=== PATIENT | male | born 1995 | race Hispanic/Latino ===

== ENCOUNTER 2019-01-10 14:29 | Inpatient (IN) | payer OTHER, SELFPAY ==
[~2019-01-10 14:29] MED LIST: ISOVUE-370 76%-LOCM 1 ML ONE
[2019-01-10] MEDS ORDERED: Adenosine 6 MG/2 ML VIAL ONE (14:36)
[2019-01-10] MEDS ORDERED: Acetaminophen 325 MG TAB ONE (14:58)
[2019-01-10 15:23] LABS: Hemoglobin 16.4 g/dL (14.0-18.0); Mean Corpuscular HGB CONC 33.2 g/dL (32.0-36.0); Mean Corpuscular Hemoglobin 30.3 pg (27.0-31.0); Mean Corpuscular Volume 91.3 fL (78.0-98.0); Mean Platelet Volume 9.3 fL (7.4-10.4); Platelet Count 323 thou/uL (130-400); RBC Distribution Width 12.4 % (11.5-14.5); Red Blood Cell (RBC) Count 5.39 mill/uL (4.70-6.10); White Blood Cell (WBC) Count 20.7 thou/uL (4.8-10.8)
[2019-01-10 15:31] LABS: ALT (SGPT) 35 U/L (8-55); AST (SGOT) 16 U/L (5-34); Albumin 4.6 g/dL (3.5-5.0); Alkaline Phosphatase 84 U/L (40-150); Anion Gap 18 mmol/L (10-20); BUN (Urea Nitrogen) 16 mg/dL (8.9-20.6); Bilirubin, Total 2.1 mg/dL (0.2-1.2); Calc. Creatinine Clearance 0 mL/min (70-130); Calcium 10.6 mg/dL (7.8-10.44); Carbon Dioxide 21 mmol/L (22-29); Chloride 99 mmol/L (98-107); Estimated GFR-MDRD 82; Globulin 4.6 g/dL (2.4-3.5); Glucose 111 mg/dL (70-105); Potassium 3.8 mmol/L (3.5-5.1); Protein, Total 9.2 g/dL (6.0-8.3); Sodium 134 mmol/L (136-145)
[2019-01-10] MEDS ORDERED: Piperacillin/Tazobactam 4.5 GM VIAL ONE (15:36)
[2019-01-10 15:38] LABS: Band 5 % (5-11); Lymphocytes 16 % (21-51); MDiff Complete? YES; Monocytes 9 % (0-10); Neutrophil 69 % (42-75); Platelet Morphology Comment Appears Adequate; RBC Morphology Normal; Reactive Lymphocytes 1 % (0-10)
--- NOTE | 2019-01-10 15:55 | RAD ---
SINGLE VIEW CHEST: HISTORY: Dyspnea and back pain. COMPARISON: 11/25/2011 FINDINGS: A single view of the chest shows a normal sized cardiomediastinal silhouette. Low lung volumes are p resent. There is elevation of the right hemidiaphragm. There is no evidence of consolidation, mass, or pleural effusion. IMPRESSION: No evidence of acute cardiopulmonary disease. POS: [facility]
--- NOTE | 2019-01-10 16:19 | CT ---
CT ANGIO OF CHEST PERFORMED WITH INTRAVENOUS CONTRAST ENHANCEMENT WITH 3D RECONSTRUCTIONS: 01/10/19 HISTORY: Chest pain. Shortness of breath. There is mild to moderate sized right sided pleural effusion. There is atelectatic changes in the pos terior basal segment of the right lower lobe but also there is parenchymal change more in the superio r segment of the right lower lobe which could be part of the atelectasis but has more of an infiltrat isra appearance. There is linear atelectatic change in the left base without any significant effusion. No significant mediastinal, hilar or axillary adenopathy. The thoracic aorta is normal in caliber. The pulmonary artery opacification is limited. I do not see any proximal embolus but more peripheral emboli are not excluded. Marked fatty changes of the liver are visualized. Visualized portions of the pancreas which is only t he pancreatic tail is normal. IMPRESSION: 1. Mild right sided pleural effusion. There is atelectatic changes in the right base but more in the superior segment of the right lower lobe. There is changes of either atelectasis versus infiltra te. The changes in the left base are more suggestive of typical atelectasis. 2. Diffuse fatty changes of the visualized portions of the liver. 3. Limited examination. No signs of any proximal pulmonary embolus. POS: [facility]
[2019-01-10 16:38] LABS: Lipase Less than 4 U/L (8-78)
[2019-01-10 16:39] LABS: CK (CPK) 78 U/L (30-200)
--- NOTE | 2019-01-10 16:40 | ULT ---
GALLBLADDER ULTRASOUND: Date: 01/10/19 HISTORY: Right upper quadrant pain. FINDINGS: Real-time imaging of the right upper quadrant was performed. This shows a normal appearing gallbladde r. No gallstones identified. The common duct is 2-3 mm. Liver measures approximately 18.0 cm in lengt h and is of diffuse increased echogenicity. There is some focal fatty sparing adjacent to the gallbla dder. Right kidney is normal in size and not obstructed. The pancreas is totally obscured. IMPRESSION: Diffuse fatty change of the liver. POS: [facility]
[2019-01-10 17:44] LABS: Bilirubin Negative (Negative); Blood, Urine Negative (Negative); Clarity CLEAR (Clear); Glucose, Urine (Dipstick) Negative (Negative); Leukocyte Negative (Negative); Nitrite Negative (Negative); Protein, Urine (Dipstick) Trace mg/dL (Neg-Trace)
[2019-01-10 17:49] LABS: Base Excess-Venous -1.7 mmol/L (-2.0 to 3.0); CO2 Tension (PvCO2) 38.3 mmHg (40.0-50.0); Calcium, Ionized 1.06 mmol/L (See Comments:); Chloride 103 mmol/L (98-107); Hemoglobin - Calc 15.4 g/dL (14.0-18.0); O2 Tension (PvO2) 30.6 mmHg (35.0-45.0); Potassium 3.8 mmol/L (3.5-5.1); Sodium 136 mmol/L (138-145); T. Carbon Dioxide 24.2 mmol/L (22.0-28.0); pH (Venous) 7.386 (7.320-7.430); vO2 Saturation-calc 58.2 % (60.0-85.0)
[2019-01-10 17:52] LABS: Specific Gravity, Urine 1.049 (1.002-1.036)
--- NOTE | 2019-01-10 18:30 | PDOC.FPRHP ---
- History of Present Illness Chief Complaint: dyspnea, fever History of Present Illness: 23 yo M with no PMH presents for dyspnea and fever. Patient states that it began 2 weeks ago with cough and congestion. 4 days ago, he had a sharp pain in his back, so [facility] went [facility] and was given muscle relaxers which helped some. He also starting having post-tussive vomiting. He reports he did not urinate at all yesterday. His cough and dyspnea have been worsening, so much so that today he has pleuritic chest pain worse on his right side (anterior, lateral, and posterior). On presentation to ED, he was tachypneic to 40s, febrile 100.5, tachycardic to 170s, with a high WBC of 20.7. LA was elevated at 3.8. CT chest showed RLL pneumonia and pleural effusion. He was given Vanc, zosyn, tylenol, 4L NS, UA neg. CT chest ruled out PE. - Allergies/Adverse Reactions Allergies Allergy/AdvReac Type Severity Reaction Status Date / Time No Known Drug Allergies Allergy Verified 01/10/19 21:49 - Home Medications Medication Instructions Recorded Confirmed Type Acetaminophen With Codeine 1 tablet PO Q6HR PRN 01/10/19 01/10/19 History [Tylenol with Codeine #3] Cyclobenzaprine [Flexeril] 10 mg PO TID PRN 01/10/19 01/10/19 History - History PMHx: None PSHx: None FHx: No heart disease, DM or cancer Social: Denies tobacco, alcohol, or drug use - Review of Systems General: reports: fever/chills, weight/appetite/sleep changes (decreased appetite) ENT: reports: other (sore throat). denies: nasal congestion, rhinorrhea Respiratory: reports: cough, congestion, shortness of breath Cardiovascular: reports: chest pain. denies: palpitation, edema Gastrointestinal: reports: vomiting. denies: nausea, diarrhea, constipation, abdominal pain, GI bleeding Genitourinary: denies: dysuria, other (hematuria) Skin: denies: rashes, lesions Musculoskeletal: reports: pain (back pain). denies: tenderness Neurological: reports: numbness (chest numbness on right side). denies: weakness Psychological: denies: anxiety, depression - Vital signs BP: [128/76] HR: [135] RR: [48] Tmax: [100.5] Pox: [96]% on [RA] Wt: [107.1] - Physical Exam Constitutional: awake, alert and oriented, well developed, other (tachypneic, diaphoretic) HEENT: normocephalic and atraumatic, PERRLA, EOMI Neck: supple, trachea midline Heart: normal S1/S2, no murmurs/rubs/gallops, pulses present, no edema, other ( tachycardic) Lungs: CTAB, no rales/rhonchi, no wheezing Abdomen: soft, non-tender, bowel sounds present, no masses/distention Musculoskeletal: normal structure, normal tone, ROM grossly normal Neurological: no focal deficit, CN II-XII intact Skin: good turgor (s/p 3L fluids), capillary refill <2 seconds Heme/Lymphatic: no unusual bruising or bleeding, no purpura Psychiatric: normal mood and affect, good judgment and insight, intact recent and remote memory FMR H&P: Results - Labs Result Diagrams: 01/10/19 14:40 01/10/19 14:40 Lab results: WBC 20.7 thou/uL (4.8-10.8) H 01/10/19 14:40 Hgb 16.4 g/dL (14.0-18.0) 01/10/19 14:40 Hct 49.2 % (42.0-52.0) 01/10/19 14:40 MCV 91.3 fL (78.0-98.0) 01/10/19 14:40 Plt Count 323 thou/uL (130-400) 01/10/19 14:40 Band Neuts % (Manual) 5 % (5-11) 01/10/19 14:40 VBG pCO2 38.3 mmHg (40.0-50.0) L 01/10/19 17:47 VBG pO2 30.6 mmHg (35.0-45.0) L 01/10/19 17:47 Sodium 134 mmol/L (136-145) L 01/10/19 14:40 Potassium 3.8 mmol/L (3.5-5.1) 01/10/19 14:40 Chloride 99 mmol/L (98-107) 01/10/19 14:40 Carbon Dioxide 21 mmol/L (22-29) L 01/10/19 14:40 BUN 16 mg/dL (8.9-20.6) 01/10/19 14:40 Creatinine 1.13 mg/dL (0.7-1.3) 01/10/19 14:40 Glucose 111 mg/dL (70-105) H 01/10/19 14:40 Lactic Acid 3.8 mmol/L (0.5-2.2) H 01/10/19 14:40 Calcium 10.6 mg/dL (7.8-10.44) H 01/10/19 14:40 Total Bilirubin 2.1 mg/dL (0.2-1.2) H 01/10/19 14:40 AST 16 U/L (5-34) 01/10/19 14:40 ALT 35 U/L (8-55) 01/10/19 14:40 Alkaline Phosphatase 84 U/L (40-150) 01/10/19 14:40 Creatine Kinase 78 U/L (30-200) 01/10/19 14:38 Serum Total Protein 9.2 g/dL (6.0-8.3) H 01/10/19 14:40 Albumin 4.6 g/dL (3.5-5.0) 01/10/19 14:40 Lipase Less than 4 U/L (8-78) L 01/10/19 14:38 Urine Ketones 15 mg/dL (Negative) H 01/10/19 17:17 Urine Blood Negative (Negative) 01/10/19 17:17 Urine Nitrite Negative (Negative) 01/10/19 17:17 Ur Leukocyte Esterase Negative (Negative) 01/10/19 17:17 - EKG Interpretation EKG: Sinus tach - Radiology Interpretation Chest x-ray Status: image reviewed by me, report reviewed by me Additional comment: RLL pneumonia, elevated diaphram CT scan - chest Status: image reviewed by me, report reviewed by me Additional comment: RLL pneumonia, no PE, Rt pleural effusion FMR H&P: A/P - Problem List (1) Sepsis due to pneumonia Current Visit: Yes Status: Acute Priority: High Code(s): J18.9 - PNEUMONIA , UNSPECIFIED ORGANISM; A41.9 - SEPSIS, UNSPECIFIED ORGANISM (2) Acute hypoxemic respiratory failure Current Visit: Yes Status: Acute Code(s): J96.01 - ACUTE RESPIRATORY FAILURE WITH HYPOXIA (3) Costochondral chest pain Current Visit: Yes Status: Acute Code(s): R07.1 - CHEST PAIN ON BREATHING (4) Fatty liver Current Visit: Yes Status: Acute Code(s): K76.0 - FATTY (CHANGE OF) LIVER, NOT ELSEWHERE CLASSIFIED (5) Dehydration Current Visit: Yes Status: Acute Priority: High Code(s): E86.0 - DEHYDRATION - Plan #1 Acute Hypoxemic Respiratory Failure 2/2 Sepsis due to RLL Pneumonia - On presentation to ED, he was tachypneic to 40s, febrile 100.5, tachycardic to 170s, with a high WBC of 20.7. LA was elevated at 3.8. VBG showed low O2. - CXR/CT chest showed RLL pneumonia and pleural effusion. CT chest showed no PE. - Continue Vanc, zosyn - Consider switching antibiotics to azithro/rocephin or doxycycline once VSS and tolerating PO - S/p 4L NS. Continue MIVF LR @ 150 - UA neg - LA trending down - Procal 1.05, continue to trend - Strep ag neg - Bl and urine cx collected - Continue to monitor vitals closely - AM BMP/CBC - duonebs q4h OMAR, PRN q2h - HIV neg, UDS pending #2 Costochondritis due to #1 - 1 dose toradol, then IBP 800 q6h #Moderate dehydration - Contributing to his tachycardia - Zofran for nausea - S/p 4L as above, on MIVF. Tachycardia improving - Decreased output. Continue to monitor. BUN/Cr wnl #4 Fatty Liver - Seen on sono, group therapy counselor dietary change - Liver enzymes wnl Diet: Regular DVT ppx: lovenox GI ppx: ranitidine Code status: full PCP: none Xiomara Harvey MD PGY-1 FMR H&P: Upper Level - Pertinent history 23 yo HM no PMH presents with 2 week hx of cough and 2-3 day history of lower posterior chest wall pain. States he had 1 episode of vomiting on Tuesday and has not felt hungry or thirsty since then. UTD vaccines. Was seen in urgent care yesterday and diagnosed with low back pain and given NSAIDs and muscle relaxers for pain. ER: Labs, EKG, CXR, CTA chest, NS x4L, Vanc, Zosyn. We ordered a duoneb in the ER and patient states he felt like he could breath easier after Neb. Still having pain so ordered dose of toradol 30 mg IV. - Pertinent findings Vitals Pulse 143, Resp 40, SpO2 94% on RA. Gen: Mild resp distress. A&Ox4. Speaks short sentences due to pain. CV: Tachy regular, no murmur Pulm: CTA-B. No retractions. tachypneic Labs: Lactic Acid 3.8-> 2.8. Urine specific gravity 1.049, WBC 20.7 RUQ US: Fatty liver changes. CTA-Chest: mild to moderate right pleural effusions, RLL infiltrate - Plan Date/Time: 01/10/191829 I, Stiven Noel MD, have evaluated this patient and agree with findings/plan as outlined by internet sales manager resident. Pertinent changes/additions are listed here. 1. Acute Hypoxemic Respiratory distress 2/2 RLL CAP: Checking procalcitonin and urine strep antigen. Per hothouse worker, patient is not stable for medical floor so will be placed on telemetry. Patient has no cardiac history and is likely tachycardic and tachypneic due to volume depletion and MSK chest pain. Will schedule duonebs q4hr with q2hr PRN albuterol Continue Vanc and zosyn. Once clinically improved, will consider switching to azithro/rocephin or doxycycline. 2. Sepsis 2/2 #1: Lactic acid trending down. LR at 150 mL/hr. 3. MSK chest pain: PRN ibuprofen. Given toradol in ER. likely contributing to tachypnea. 4. Diet: regular 5. PPx: walking program 6. CODE: FULL Dispo: tele, inpatient >[address] Sevilla.
[2019-01-10 19:11] LABS: Lactic Acid 2.8 mmol/L (0.5-2.2)
[2019-01-10] MEDS ORDERED: Ketorolac Tromethamine 30 MG/ML VIAL ONE (19:19)
[2019-01-10 19:58] LABS: Strep pneumo Urine Ag NEGATIVE (NEGATIVE)
[2019-01-10 20:40] LABS: HIV (1/2) Antibody/Antigen Non-Reactive (NonReactive); HIV 1/2 INDEX 0.42 S/CO (<1.00)
[2019-01-10] MEDS ORDERED: Ketorolac Tromethamine 30 MG/ML VIAL IVP PRN (21:43)
[2019-01-10] MEDS ORDERED: Enoxaparin Sodium 40 MG/0.4 ML SYRINGE SC SCH (22:00)
[2019-01-10] MEDS: Lactated Ringer's 1,000 ML IV SCH ×2 (22:05→23:24)
[2019-01-10 22:19] VITALS: BMI 34.7
[2019-01-10] MEDS ORDERED: Lactated Ringer's 1,000 ML IV SCH (23:00)
--- NOTE | 2019-01-10 23:14 | PDOC.EVN ---
Event Note - Event Note Event Note: Date/Time: 01/10/19 9268 I personally evaluated the patient and discussed the management with Dr. Verde I agree with the History, Examination, Assessment and Plan documented above with any addition or exceptions noted below- 23 yo M with no PMH presents with 2 week hx of cough productive of white sputum and 2-3 day history of lower posterior chest wall pain. States he had 1 episode of vomiting on Tuesday and has not felt hungry or thirsty since then. UTD vaccines. Was seen in urgent care yesterday and diagnosed with low back pain and given NSAIDs and muscle relaxers for pain with no relief. No ill contacts. Subj fevers. PMH/PSH/All/ Meds reviewed and agree with resident's documentation. Tm 101.4 in ER p148 BP113/58 RR24 90% RA Exam repeated by me and agree with resident's findings. Labs: WBC=20.7, H/H=16.4/49.2, Ekz=937, NH=502, K=3.8, CL=99, CO2=21, BUN/Cr=16/ 1.13, Wbhg=632, Lactic acid=3.8 -> 2.8, AST/ALT=16/35, Procal=1.05, Urine Strep pneumo Ag (-); CTA chest- mild right pleural effusion, RLL infiltrate. A/P: 1) Sepsis secondary to CAP- Continue IVF. Continue Vanc/cefepime. Blood, urine cultures pending. Continue nebs.
[2019-01-10] MEDS: Ibuprofen 800 MG TAB PO SCH (23:23)
[2019-01-10] MEDS: Piperacillin/Tazobactam 4.5 GM in Sodium Chloride 0.9% 100 ML IVPB SCH (23:23)
[2019-01-11] MEDS: Vancomycin HCl 1.5 GM in Sodium Chloride 0.9% 250 ML 300 ML IVPB SCH ×2 (01:17→12:29)
[2019-01-11] MEDS ORDERED: Ondansetron PF 4 MG/2 ML Vial IVP PRN (01:18)
[2019-01-11] MEDS ORDERED: Ondansetron ODT 4 MG TAB PO PRN (01:18)
[2019-01-11 02:02] LABS: Amphetamine Not Detected (NotDetected); Barbiturates Screen Not Detected (NotDetected); Benzodiazepine Screen Not Detected (NotDetected); Cocaine Metabolite Screen Not Detected (NotDetected); Medtox Control Line Valid? VALID (VALID); Medtox Reader # READER 4; Methadone Not Detected (NotDetected); Methamphetamine Not Detected (NotDetected); Opiate Screen Detected (NotDetected); Oxycodone Screen Not Detected (NotDetected); Phencyclidine (PCP) Not Detected (NotDetected); THC/Cannabinoid Screen Not Detected (NotDetected); Tricyclic Screen Detected (NotDetected)
[2019-01-11 05:15] LABS: Anion Gap 14 mmol/L (10-20); BUN (Urea Nitrogen) 14 mg/dL (8.9-20.6); Calc. Creatinine Clearance 182 mL/min (70-130); Calcium 9.3 mg/dL (7.8-10.44); Carbon Dioxide 22 mmol/L (22-29); Chloride 102 mmol/L (98-107); Estimated GFR-MDRD Greater than 90; Glucose 111 mg/dL (70-105); Potassium 3.9 mmol/L (3.5-5.1); Sodium 134 mmol/L (136-145)
[2019-01-11 05:16] LABS: Band 3 % (5-11); Hemoglobin 13.9 g/dL (14.0-18.0); Lymphocytes 5 % (21-51); MDiff Complete? YES; Mean Corpuscular HGB CONC 33.1 g/dL (32.0-36.0); Mean Corpuscular Hemoglobin 30.6 pg (27.0-31.0); Mean Corpuscular Volume 92.5 fL (78.0-98.0); Mean Platelet Volume 8.1 fL (7.4-10.4); Monocytes 3 % (0-10); Neutrophil 89 % (42-75); Platelet Count 230 thou/uL (130-400); Platelet Morphology Comment Appears Adequate; RBC Distribution Width 12.1 % (11.5-14.5); RBC Morphology Normal; Red Blood Cell (RBC) Count 4.54 mill/uL (4.70-6.10); White Blood Cell (WBC) Count 21.7 thou/uL (4.8-10.8)
[2019-01-11] MEDS: Ibuprofen 800 MG TAB PO SCH ×4 (05:28→23:39)
[2019-01-11] MEDS: Piperacillin/Tazobactam 4.5 GM in Sodium Chloride 0.9% 100 ML IVPB SCH ×4 (05:28→23:39)
--- NOTE | 2019-01-11 08:18 | PDOC.FM ---
- Subjective Subjective: Patient seen at bedside this morning resting comfortably. he states that he is feeling much better this morning. No acute events since admission. No new complaints - Objective MAR Reviewed: Yes Vital Signs & Weight: Vital Signs (12 hours) Temp Pulse Resp BP Pulse Ox 01/11/19 07:24 94 L 01/11/19 07:23 127 H 20 94 L 01/11/19 04:00 99.7 F H 136 H 18 113/58 L 95 01/11/19 02:21 84 20 95 01/11/19 00:00 99.5 F 144 H 20 109/52 L 95 01/10/19 23:12 87 20 97 01/10/19 21:43 99.5 F 148 H 22 H 113/58 L 90 L Weight Weight 106.594 kg I&O: 01/10/19 01/11/19 01/12/19 06:59 06:59 06:59 Intake Total 2600 Output Total 300 Balance 2300 Result Diagrams: 01/11/19 04:30 01/11/19 04:30 Phys Exam - Physical Examination Constitutional: NAD HEENT: moist MMs Neck: full ROM Rales in RML and RLL Cardiovascular: no significant murmur Tachycardia Gastrointestinal: soft, non-tender, no distention, positive bowel sounds Musculoskeletal: no edema Neurological: moves all 4 limbs Psychiatric: A&O x 3 Skin: no rash, normal turgor Dx/Plan (1) Acute hypoxemic respiratory failure Code(s): J96.01 - ACUTE RESPIRATORY FAILURE WITH HYPOXIA Status: Acute (2) Costochondral chest pain Code(s): R07.1 - CHEST PAIN ON BREATHING Status: Acute (3) Dehydration Code(s): E86.0 - DEHYDRATION Status: Acute (4) Fatty liver Code(s): K76.0 - FATTY (CHANGE OF) LIVER, NOT ELSEWHERE CLASSIFIED Status: Chronic (5) Sepsis due to pneumonia Code(s): J18.9 - PNEUMONIA, UNSPECIFIED ORGANISM; A41.9 - SEPSIS, UNSPECIFIED ORGANISM Status: Acute - Plan Plan: 1. Acute Hypoxemic Respiratory Failure 2/2 Sepsis due to RLL Pneumonia - Patient appears to be stable at this time. Normal O2 sat and respiratory rate , though tachycardia persists. - CXR/CT chest showed RLL pneumonia and pleural effusion. CT chest showed no PE. - Plan to de escalate abx today. - Patient has adequate fluid resuscitation and taking PO well, consider dc'ing IVF when urinary output improves - Continue to trend lactic acid and procal - Strep ag neg - Bl and urine cx collected - duonebs q4h OMAR, PRN q2h 2. Costochondritis - prn oral NSAIDs 3. Moderate dehydration - improving, continue to monitor UOP 4. Fatty Liver - incidental finding, legal counsel out weight loss. Will need outpatient work up Dispo: patient stable and doing well. Likely stable to move off of tele today. LOS 24-48 hours. Addendum - Attending - Attending Attestation Date/Time: 01/11/19 1106 I personally evaluated the patient and discussed the management with Dr. Lee. I agree with the History, Examination, Assessment and Plan documented above with any addition or exceptions noted below. Patient symptomatically feels better and almost near baseline. RLL Pneumonia on CT Scan- Continue Vanc and Zosyn through 1300 dose and then deescalate abx. 1/2 + blood cx for coag neg staph- most likely skin contaminant. Dehydration- improved after 4L bolus. On maintanence fluid now. good uop by history Fatty liver- dietary counseling. Tachycardia- sinus tach- no EKG changes and patient asymptomatic. Most likely exacerbated by albuterol. Continue to monitor on tele.
[2019-01-11] MEDS ORDERED: Vancomycin HCl 1.5 GM in Sodium Chloride 0.9% 500 ML IVPB SCH (09:00)
[2019-01-11] MEDS: Enoxaparin Sodium 40 MG/0.4 ML SYRINGE SC SCH (09:05)
[2019-01-11 09:52] LABS: Lactic Acid 1.4 mmol/L (0.5-2.2)
[2019-01-11] MEDS: Lactated Ringer's 1,000 ML IV SCH ×4 (12:42→23:39)
[2019-01-11] MEDS: Acetaminophen/Codeine 30-300mg Tablet PO PRN (23:37)
[2019-01-12] MEDS: Ibuprofen 800 MG TAB PO SCH ×4 (06:04→23:47)
[2019-01-12 06:23] LABS: #Basophils 0.1 thou/uL (0.0-0.2); #Eosinphils 0.2 thou/uL (0.0-0.7); #Lymphocytes 0.9 thou/uL (1.20-3.40); #Monocytes 1.2 thou/uL (0.11-0.59); #Neutrophils 11.2 thou/uL (1.40-6.50); %Basophils 0.6 % (0.0-1.0); %Eosinophils 1.8 % (0.0-10.0); %Lymphocytes 6.5 % (21.0-51.0); %Monocytes 8.6 % (0.0-10.0); %Neutrophils 82.5 % (42.0-75.0); Mean Corpuscular HGB CONC 33.4 g/dL (32.0-36.0); Mean Corpuscular Hemoglobin 30.2 pg (27.0-31.0); Mean Corpuscular Volume 90.3 fL (78.0-98.0); Mean Platelet Volume 7.9 fL (7.4-10.4); Platelet Count 225 thou/uL (130-400); RBC Distribution Width 12.3 % (11.5-14.5); White Blood Cell (WBC) Count 13.5 thou/uL (4.8-10.8)
[2019-01-12 06:44] LABS: Chloride 105 mmol/L (98-107); Potassium 5.4 mmol/L (3.5-5.1); Sodium 133 mmol/L (136-145)
[2019-01-12 06:45] LABS: Calcium 9.1 mg/dL (7.8-10.44); Glucose 90 mg/dL (70-105)
[2019-01-12 06:47] LABS: Carbon Dioxide 15 mmol/L (22-29)
[2019-01-12 06:49] LABS: BUN (Urea Nitrogen) 13 mg/dL (8.9-20.6); Calc. Creatinine Clearance 182 mL/min (70-130); Estimated GFR-MDRD Greater than 90
[2019-01-12 06:53] LABS: Lactic Acid 1.6 mmol/L (0.5-2.2)
[2019-01-12 07:15] LABS: Anion Gap 18 mmol/L (10-20)
--- NOTE | 2019-01-12 08:00 | RAD ---
TWO VIEWS OF THE CHEST: COMPARISON: 01/10/2019. HISTORY: Right lower lobe pneumonia. FINDINGS: Two views of the chest show a normal-size cardiomediastinal silhouette. There is elevation of the ri ght hemidiaphragm. A moderate right pleural effusion is seen. Adjacent atelectasis versus infiltrat e may be present. IMPRESSION: Moderate right pleural effusion with adjacent atelectasis versus infiltrate. POS: [facility]
--- NOTE | 2019-01-12 08:07 | PDOC.FM ---
- Subjective Subjective: Seen sitting up in chair this morning in no acute distress. States that he generally feels better, but still has SOB when he walks. Denies fever, chills, chest pain, or new symptoms. No acute events over night - Objective MAR Reviewed: Yes Vital Signs & Weight: Vital Signs (12 hours) Temp Pulse Resp BP Pulse Ox 01/12/19 04:00 97.6 F 90 18 110/57 L 92 L 01/12/19 03:13 94 L 01/11/19 23:07 94 L Weight Weight 106.594 kg I&O: 01/11/19 01/12/19 01/13/19 06:59 06:59 06:59 Intake Total 2600 2400 Output Total 300 Balance 2300 2400 Result Diagrams: 01/12/19 06:13 01/12/19 05:27 Additional Labs: Laboratory Tests 01/12/19 06:13 Procalcitonin 2.59 EKG Reviewed by me: Yes Phys Exam - Physical Examination Constitutional: NAD HEENT: sclera anicteric Neck: full ROM Rales in RML and RLL, Left side clear Cardiovascular: no significant murmur Tachycardia Gastrointestinal: soft, non-tender, no distention, positive bowel sounds Musculoskeletal: no edema Neurological: non-focal, moves all 4 limbs Psychiatric: normal affect, A&O x 3 Skin: no rash, normal turgor Dx/Plan (1) Acute hypoxemic respiratory failure Code(s): J96.01 - ACUTE RESPIRATORY FAILURE WITH HYPOXIA Status: Acute (2) Costochondral chest pain Code(s): R07.1 - CHEST PAIN ON BREATHING Status: Acute (3) Dehydration Code(s): E86.0 - DEHYDRATION Status: Resolved (4) Fatty liver Code(s): K76.0 - FATTY (CHANGE OF) LIVER, NOT ELSEWHERE CLASSIFIED Status: Chronic (5) Sepsis due to pneumonia Code(s): J18.9 - PNEUMONIA, UNSPECIFIED ORGANISM; A41.9 - SEPSIS, UNSPECIFIED ORGANISM Status: Acute (6) Parapneumonic effusion Code(s): J18.9 - PNEUMONIA, UNSPECIFIED ORGANISM; J91.8 - PLEURAL EFFUSION IN OTHER CONDITIONS CLASSIFIED ELSEWHERE Status: Suspected - Plan Plan: 1. Acute Hypoxemic Respiratory Failure 2/2 Sepsis due to RLL Pneumonia - Continues to be stable and oxygenating well on RA. Tachycardia, however, persists - CXR/CT chest shows worsening area of infiltrate and effusion. This is likely due to low volume status at time of admission. Will consult pulm for evaluation for thoracentesis - Move abx to Rocephin and Doxy - Lactic acid WNL - Procal increased to 2.5 today, will continue to trend - Strep ag neg - Blood culture shows 1/2 coagulase neg staph, assumed contaminate. Urine cx pending - duonebs q4h OMAR, PRN q2h 2. Costochondritis - prn oral NSAIDs 3. Moderate dehydration, resolved 4. Fatty Liver - incidental finding, correctional substance abuse counselor out weight loss. Will need outpatient work up 5. Parapneumonic effusion, suspected - pulm consult as above Dispo: patient stable and doing well. Likely stable to move off of tele today. LOS 24-48 hours. Addendum - Attending - Attending Attestation Date/Time: 01/12/19 1126 I personally evaluated the patient and discussed the management with Dr. Lee I agree with the History, Examination, Assessment and Plan documented above with any addition or exceptions noted below. CAP with worsening parapneumoic effusion. Patient not requiring O2 at this time. Will consult pulmonology. Tachycardia- persistent despite rehydration. will get ECHO to further evaluate. Probable GENIE (per patient and girlfriends report) Obesity and Fatty liver- weight loss counseling.
[2019-01-12] MEDS ORDERED: cefTRIAXone\\ROCEPHIN 1 GM in Sodium Chloride 0.9% 100 ML IVPB SCH (09:00)
[2019-01-12] MEDS: Enoxaparin Sodium 40 MG/0.4 ML SYRINGE SC SCH (10:52)
[2019-01-12] MEDS: Doxycycline 100 MG CAP PO SCH ×2 (13:24→19:49)
[2019-01-12] MEDS: Acetaminophen/Codeine 30-300mg Tablet PO PRN (19:48)
--- NOTE | 2019-01-12 20:25 | CON ---
DATE OF CONSULTATION: 01/12/2019 SERVICE: Pulmonary Medicine. REASON FOR CONSULTATION: Pneumonia. HISTORY OF PRESENT ILLNESS: The patient is a 23-year-old male with past medical history significant for some pleuritic chest discomfort. Ultimately, he presented to the emergency department was discovered to have a pneumonia. He was admitted to the hospital on the 10 of January. Repeat chest x-ray was performed demonstrating increasing opacification in the right lung, and likely an increasing pleural effusion. I was subsequently consulted. Since he has been in the hospital, he has had a significant improvement in symptoms. He denies any current chest pain, fevers, chills, nausea, or vomiting. Otherwise, he is returning to his usual state of health. PAST MEDICAL HISTORY: 1. Obesity. 2. Obstructive sleep apnea, suspected. PAST SURGICAL HISTORY: None. FAMILY HISTORY: Noncontributory. SOCIAL HISTORY: Negative for alcohol, tobacco, or illicit drug use. He works in the oil field. He denies any exposure to chemicals, dust, asbestos, or tuberculosis. ALLERGIES: NO KNOWN DRUG ALLERGIES. MEDICATIONS: List of his inpatient medications was reviewed. No specific updates were made at this time. Up until recently, he was on vancomycin, and Zosyn. He was just recently de-escalated to Rocephin and doxycycline. REVIEW OF SYSTEMS: General, head, ears, eyes, nose, throat, cardiovascular, respiratory, GI, , musculoskeletal, neurologic, and skin are negative except as mentioned in the HPI. PHYSICAL EXAMINATION: VITAL SIGNS: Afebrile, pulse 118, blood pressure 120/69, respirations 16, and saturation 90% on room air. GENERAL: The patient is awake and alert, in no apparent distress. LUNGS: Decent air entry. Rhonchi and crackles are present in the right lung. No prolonged expiratory phase or wheezing is otherwise appreciated. HEART: Normal rate and regular. ABDOMEN: Soft, nontender, and nondistended. Bowel sounds are positive. MUSCULOSKELETAL: No cyanosis or clubbing. No pitting in the bilateral lower extremities. NEUROLOGIC: Grossly nonfocal. LABORATORY DATA: WBC 13.5, hemoglobin 13.0, platelets 225,000. Sodium 133 and roughly stable. Potassium 5.4. Basic metabolic profile is otherwise unremarkable. Lactate was originally 2.8, but is trended downward to 1.6. Procalcitonin is elevated at 2.5. Liver function studies are unremarkable. Urinalysis is positive for tricyclics and opiates, in keeping with what he was given in the outpatient setting. HIV was nonreactive. Strep pneumoniae antigen is unremarkable. Coag-negative staph is growing in 1/2 blood cultures. Influenza A and B are unremarkable. Urine culture to date is negative. IMAGING STUDIES: CTA of the chest was without PE. He has a right lower lobe infiltrate, and at that time, had a remote pleural effusion. Unfortunately, on presentation, it had ever so slight appearance of loculation given that it did not layer fully. Abdominal ultrasound demonstrates diffuse fatty change of the liver. Repeat chest x-ray demonstrates significant increase in the infiltrate, in the size of the effusion. His bedside ultrasound performed by me showed no significant effusion or infiltrate in the left chest. On the right side, had a very difficult time distinguishing my fluid/tissue planes. I could not identify the lung. I could clearly see there was a rim of pleural effusion. Deep to that, there was a structure that was not mobile. That did not take on the appearance of atelectatic or consolidated lung. I could not identify his diaphragm. ASSESSMENT: 1. Acute hypoxic respiratory failure, improving. 2. Community-acquired pneumonia. 3. Pleural effusion. 4. Obstructive sleep apnea, suspected. 5. Severe sepsis, improving. DISCUSSION AND PLAN: We will repeat a CT of the chest tomorrow morning. If it appears that this fluid collection is getting larger, or taking on a loculated appearance, thoracentesis, and/or cardiothoracic surgery consultation will be considered depending on what we find. On my bedside evaluation, I really could not see a large obvious pocket of fluid to get into. That being said, my suspicion is that this base is actually involved. Hopefully, we would not see a larger pleural effusion on our CT tomorrow. The patient understands however that if this space is involved, it will require additional procedures and possibly an operation to fix it. If there is more loculated appearance, I would restart anaerobic coverage. 70 minutes have been devoted to this patient in various activities. I personally reviewed all imaging studies and laboratory data noted within this document. For fifty percent of this time, I was interacting with the patient at the bedside or coordinating care with the care team. For the remainder of the time I was immediately available to the patient in the hospital unit. Job ID: [id number] [facility]
[2019-01-13] MEDS: Ibuprofen 800 MG TAB PO SCH ×4 (06:18→23:16)
[2019-01-13 06:26] LABS: Anion Gap 13 mmol/L (10-20); BUN (Urea Nitrogen) 14 mg/dL (8.9-20.6); Calc. Creatinine Clearance 220 mL/min (70-130); Calcium 9.2 mg/dL (7.8-10.44); Carbon Dioxide 22 mmol/L (22-29); Chloride 105 mmol/L (98-107); Estimated GFR-MDRD Greater than 90; Glucose 102 mg/dL (70-105); Potassium 3.2 mmol/L (3.5-5.1); Sodium 137 mmol/L (136-145)
[2019-01-13] MEDS ORDERED: Piperacillin/Tazobactam 4.5 GM in Sodium Chloride 0.9% 100 ML IVPB SCH ×2 (06:30→12:00)
[2019-01-13 06:34] LABS: #Eosinphils 0.3 thou/uL (0.0-0.7); #Monocytes 1.1 thou/uL (0.11-0.59); #Neutrophils 8.4 thou/uL (1.40-6.50); %Basophils 0.4 % (0.0-1.0); %Eosinophils 2.9 % (0.0-10.0); %Lymphocytes 8.9 % (21.0-51.0); %Monocytes 10.5 % (0.0-10.0); %Neutrophils 77.3 % (42.0-75.0); Hemoglobin 12.4 g/dL (14.0-18.0); Mean Corpuscular HGB CONC 33.6 g/dL (32.0-36.0); Mean Corpuscular Hemoglobin 31.1 pg (27.0-31.0); Mean Corpuscular Volume 92.6 fL (78.0-98.0); Platelet Count 261 thou/uL (130-400); RBC Distribution Width 12.4 % (11.5-14.5); Red Blood Cell (RBC) Count 3.98 mill/uL (4.70-6.10); White Blood Cell (WBC) Count 10.8 thou/uL (4.8-10.8)
--- NOTE | 2019-01-13 06:40 | PDOC.FM ---
- Subjective Subjective: Seen at bedside this morning. Patient sitting up in no acute distress. Notes that symptoms of SOB and cough are improving. No acute events over night - Objective MAR Reviewed: Yes Vital Signs & Weight: Vital Signs (12 hours) Temp Pulse Resp BP BP Pulse Ox 01/13/19 04:58 91 L 01/13/19 04:35 97.8 F 107 H 20 127/59 L 97 01/12/19 20:00 99.8 F H 123 H 18 134/76 93 L Weight Weight 106.594 kg I&O: 01/11/19 01/12/19 01/13/19 06:59 06:59 06:59 Intake Total 2600 2400 Output Total 300 Balance 2300 2400 Result Diagrams: 01/13/19 05:26 01/13/19 05:26 Phys Exam - Physical Examination Constitutional: NAD HEENT: moist MMs Neck: full ROM Rales in RLL and RML, no change Cardiovascular: RRR, no significant murmur Gastrointestinal: soft, non-tender, no distention Musculoskeletal: no edema Neurological: moves all 4 limbs Psychiatric: normal affect, A&O x 3 Skin: no rash Dx/Plan (1) Acute hypoxemic respiratory failure Code(s): J96.01 - ACUTE RESPIRATORY FAILURE WITH HYPOXIA Status: Acute (2) Costochondral chest pain Code(s): R07.1 - CHEST PAIN ON BREATHING Status: Acute (3) Dehydration Code(s): E86.0 - DEHYDRATION Status: Resolved (4) Fatty liver Code(s): K76.0 - FATTY (CHANGE OF) LIVER, NOT ELSEWHERE CLASSIFIED Status: Chronic (5) Sepsis due to pneumonia Code(s): J18.9 - PNEUMONIA, UNSPECIFIED ORGANISM; A41.9 - SEPSIS, UNSPECIFIED ORGANISM Status: Acute (6) Parapneumonic effusion Code(s): J18.9 - PNEUMONIA, UNSPECIFIED ORGANISM; J91.8 - PLEURAL EFFUSION IN OTHER CONDITIONS CLASSIFIED ELSEWHERE Status: Suspected (7) Hypokalemia Code(s): E87.6 - HYPOKALEMIA Status: Acute - Plan Plan: 1. Acute Hypoxemic Respiratory Failure 2/2 Sepsis due to RLL Pneumonia - Continues to be stable and oxygenating well on RA. Tachycardia is improving, however still over 100. - Patient was seen by Dr Cruz yesterday, there is some concern for loculated effusion. Patient will have CT today to evaluate. - Add back anaerobic coverage today - Strep ag neg - Blood culture shows 1/2 coagulase neg staph, assumed contaminate. Urine cx negative - duonebs PRN q2h 2. Costochondritis - prn oral NSAIDs 3. Moderate dehydration, resolved 4. Fatty Liver - incidental finding, family life counselor out weight loss. Will need outpatient work up 5. Parapneumonic effusion, suspected - CT today 6. Hypokalemia - replace PO Dispo: patient stable, further hospital course will be dictated by results of CT today. Addendum - Attending - Attending Attestation Date/Time: 01/13/19 9273 I personally evaluated the patient and discussed the management with Dr. Lee. I agree with the History, Examination, Assessment and Plan documented above with any addition or exceptions noted below. The patient was seen this morning sitting up in a chair and stated he felt a little better. CT scan ordered and now shows a loculated effusion. Consulting CV surgery for possible decortication. Will continue antibiotics.
[2019-01-13] MEDS ORDERED: Potassium Chloride 20 MEQ TAB PO SCH ×2 (06:45→17:30)
[2019-01-13] MEDS: Enoxaparin Sodium 40 MG/0.4 ML SYRINGE SC SCH (08:20)
[2019-01-13] MEDS: Doxycycline 100 MG CAP PO SCH (08:20)
--- NOTE | 2019-01-13 11:42 | CT ---
CT CHEST NONCONTRAST: Date: 01/13/19 HISTORY: Empyema. Pleural effusion. COMPARISON: 01/10/19. FINDINGS: Significant atelectasis of the right lung Mild atelectasis and scarring at the left base. No evidence of pneumothorax. Lack of contrast limits evaluation of the soft tissues. Right pleural fluid has increased somewhat, n ow with fluid extending around the upper and anterior margin of the right lung. A loculated component of fluid also lies along the right side of the upper anterior mediastinum. There is some increased d ensity peripheral to the lobular fluid, suggestive of a developing rind. Within the partially visualized upper abdomen, liver is diffusely hypodense. IMPRESSION: 1. Interval increase in right pleural fluid, now somewhat loculated around the right lung and at the right upper mediastinum. No pleural gas is evident. 2. Hepatosteatosis. POS: [facility]
[2019-01-13] MEDS: Piperacillin/Tazobactam 4.5 GM in Sodium Chloride 0.9% 100 ML IVPB SCH ×3 (12:31→23:16)
--- NOTE | 2019-01-13 13:37 | CON ---
DATE OF CONSULTATION: 01/13/2019 REASON FOR CONSULTATION: Evaluate the patient with a right multiloculated effusion. HISTORY OF PRESENT ILLNESS: Mr. Aguirre is a 23-year-old male, who presented through the emergency department with pneumonia. Since admission, he has accumulated right-sided effusion, which on CT scan today appears multiloculated. He also has a fair amount of consolidation of his right lung. He has had no fever. He has had shortness of breath and cannot really complete sentences without stopping. His white blood cell count at the time of admission was 21,000, it is currently 10,000 on Vibramycin. He has grown coag-negative staph from blood cultures. Currently, he is resting comfortably without real complaint. PAST MEDICAL HISTORY: None. PAST SURGICAL HISTORY: None. CURRENT MEDICATIONS: None. ALLERGIES: NONE. SOCIAL HISTORY: Works in the [employer] field. REVIEW OF SYSTEMS: A 10-point review of systems is negative except as above. PHYSICAL EXAMINATION: GENERAL: This is a moderately obese gentleman, resting comfortably in his room. VITAL SIGNS: Height 5 feet 9 inches, weight is 235 pounds, temperature is 98.5, pulse is 107, and blood pressure is 149/76. NECK: Supple without adenopathy. LUNGS: Clear with diminished breath sounds in the right base. HEART: Rhythm is regular without murmur. ABDOMEN: Soft and nontender. EXTREMITIES: No edema. LABORATORY DATA: Of note, white blood cell count is 10,000, hemoglobin is 12.4, and platelet count is 261. Potassium is 3.2. ASSESSMENT AND PLAN: This is a 23-year-old with right-sided pneumonia, which has progressed to a probable multiloculated right empyema. I have discussed thoracoscopy with decortication and he is agreeable. Job ID: [id number]
--- NOTE | 2019-01-13 18:13 | PRG ---
DATE OF SERVICE: 01/13/2019 SERVICE: Pulmonary Medicine. INTERVAL HISTORY: The patient is doing okay from respiratory standpoint. He went down for a CT of the chest this morning. Unfortunately, it looked terrible. As such, we will ask Cardiothoracic Surgery come by and visit with him. He feels a little bit better. He is a little sleepy today. He denies any chest pain, nausea, vomiting, fevers, or chills. PHYSICAL EXAMINATION: VITAL SIGNS: Afebrile, pulse 107, blood pressure 149/76, respirations 20, and saturation 91% on 2 L nasal cannula. GENERAL: The patient is awake and alert, in no apparent distress. LUNGS: Decent air entry on the left. There is decreased air entry at the right. Rhonchi are present. No prolonged expiratory phase or wheezing is appreciated. HEART: Normal rate and regular. ABDOMEN: Soft, nontender, and nondistended. Bowel sounds are positive. MUSCULOSKELETAL: No cyanosis or clubbing. No pitting in the bilateral lower extremities. NEUROLOGIC: Grossly nonfocal. LABORATORY DATA: WBC 10.8, hemoglobin 12.4, and platelets 261,000. Potassium 3.2. Basic metabolic profile is otherwise unremarkable. Procalcitonin is downtrending gently. Blood culture has grown coag-negative staph in one out of two. Influenza A and B are unremarkable. Urine culture is negative. IMAGING STUDIES: CT of the chest shows areas of loculation in the right lung. There is also pneumonia, which seems to be improving a little bit. There is fatty liver infiltration. ASSESSMENT: 1. Acute hypoxic respiratory failure, resolved. 2. Community-acquired pneumonia. 3. Pleural effusion. 4. Obstructive sleep apnea, suspected. 5. Fatty liver disease. 6. Severe sepsis, resolved. DISCUSSION AND PLAN: I will replace his potassium. We will make him n.p.o. after midnight in preparation for decortication tomorrow. At best, we are dealing with complicated parapneumonic effusion. At worse, this is an empyema. Either way, surgical intervention is indicated. Pulmonary/Critical Care will continue to follow along. In the outpatient setting, he will need to proceed with a polysomnogram, but this will obviously be delayed for several weeks. Job ID: [id number]
[2019-01-14] MEDS: Ibuprofen 800 MG TAB PO SCH ×2 (05:25→11:41)
[2019-01-14] MEDS: Piperacillin/Tazobactam 4.5 GM in Sodium Chloride 0.9% 100 ML IVPB SCH ×4 (05:26→23:27)
[2019-01-14 06:09] LABS: #Basophils 0.1 thou/uL (0.0-0.2); #Eosinphils 0.2 thou/uL (0.0-0.7); #Lymphocytes 0.9 thou/uL (1.20-3.40); #Monocytes 1.2 thou/uL (0.11-0.59); #Neutrophils 7.5 thou/uL (1.40-6.50); %Basophils 1.5 % (0.0-1.0); %Eosinophils 2.1 % (0.0-10.0); %Lymphocytes 8.8 % (21.0-51.0); %Neutrophils 75.7 % (42.0-75.0); Hemoglobin 12.9 g/dL (14.0-18.0); Mean Corpuscular HGB CONC 32.9 g/dL (32.0-36.0); Mean Corpuscular Hemoglobin 29.7 pg (27.0-31.0); Mean Corpuscular Volume 90.2 fL (78.0-98.0); Mean Platelet Volume 7.4 fL (7.4-10.4); Platelet Count 330 thou/uL (130-400); RBC Distribution Width 12.5 % (11.5-14.5); Red Blood Cell (RBC) Count 4.34 mill/uL (4.70-6.10); White Blood Cell (WBC) Count 9.9 thou/uL (4.8-10.8)
[2019-01-14 06:31] LABS: Anion Gap 15 mmol/L (10-20); BUN (Urea Nitrogen) 14 mg/dL (8.9-20.6); Calc. Creatinine Clearance 212 mL/min (70-130); Calcium 9.4 mg/dL (7.8-10.44); Carbon Dioxide 22 mmol/L (22-29); Chloride 105 mmol/L (98-107); Estimated GFR-MDRD Greater than 90; Glucose 95 mg/dL (70-105); Potassium 3.4 mmol/L (3.5-5.1); Sodium 139 mmol/L (136-145)
[2019-01-14] MEDS ORDERED: Potassium Chloride 20 MEQ TAB PO SCH (06:45)
--- NOTE | 2019-01-14 06:50 | PDOC.FM ---
- Subjective Subjective: Seen at bedside resting comfortably, no acute distress. No significant events over night. Was seen by CV surg yesterday with surgery planned for today to remove effusion. - Objective MAR Reviewed: Yes Vital Signs & Weight: Vital Signs (12 hours) Temp Pulse Resp BP BP Pulse Ox 01/14/19 03:30 98.1 F 88 16 125/73 92 L 01/13/19 19:55 100.2 F H 122 H 20 130/72 92 L Weight Weight 106.594 kg I&O: 01/12/19 01/13/19 01/14/19 06:59 06:59 06:59 Intake Total 2400 1570 Output Total 1750 Balance 2400 -180 Result Diagrams: 01/14/19 05:55 01/14/19 05:55 Phys Exam - Physical Examination Constitutional: NAD HEENT: moist MMs Neck: no JVD Rales in RML and RLL, no change from yesterday Cardiovascular: no significant murmur Gastrointestinal: soft, non-tender, no distention, positive bowel sounds Musculoskeletal: no edema Neurological: moves all 4 limbs Psychiatric: A&O x 3 Skin: no rash, normal turgor Dx/Plan (1) Acute hypoxemic respiratory failure Code(s): J96.01 - ACUTE RESPIRATORY FAILURE WITH HYPOXIA Status: Acute (2) Costochondral chest pain Code(s): R07.1 - CHEST PAIN ON BREATHING Status: Acute (3) Dehydration Code(s): E86.0 - DEHYDRATION Status: Resolved (4) Fatty liver Code(s): K76.0 - FATTY (CHANGE OF) LIVER, NOT ELSEWHERE CLASSIFIED Status: Chronic (5) Sepsis due to pneumonia Code(s): J18.9 - PNEUMONIA, UNSPECIFIED ORGANISM; A41.9 - SEPSIS, UNSPECIFIED ORGANISM Status: Acute (6) Parapneumonic effusion Code(s): J18.9 - PNEUMONIA, UNSPECIFIED ORGANISM; J91.8 - PLEURAL EFFUSION IN OTHER CONDITIONS CLASSIFIED ELSEWHERE Status: Acute (7) Hypokalemia Code(s): E87.6 - HYPOKALEMIA Status: Acute - Plan Plan: 1. Acute Hypoxemic Respiratory Failure 2/2 Sepsis due to RLL Pneumonia - Currently requiring 1L by NC - CT yesterday showed worsening and likely loculated effusion, surgical treatment today - Continue Zosyn - Strep ag neg - Blood culture shows 1/2 coagulase neg staph, assumed contaminate. Urine cx negative - duonebs PRN q2h 2. Costochondritis - prn oral NSAIDs 3. Moderate dehydration, resolved 4. Fatty Liver - incidental finding, careers counsellor out weight loss. Will need outpatient work up 5. Parapneumonic effusion -as above 6. Hypokalemia - replace PO Dispo: patient stable, further hospital course pending surgical results. Addendum - Attending - Attending Attestation Date/Time: 01/14/19 8843 I personally evaluated the patient and discussed the management with Dr. Lee. I agree with the History, Examination, Assessment and Plan documented above with any addition or exceptions noted below. Pt seen prior to going to [facility] this morning for decortication with Dr. Victor. He notes mild shortness of breath.
[2019-01-14] MEDS ORDERED: CEFAZOLIN 2 GM in Premix Bag 1 BAG IVPB SCH (07:00)
[2019-01-14] MEDS ORDERED: Bupivacaine HCl 0.5%/Epinephrine 1:200,000/PF 30 ml Vial ONE (07:31)
[2019-01-14] MEDS ORDERED: Midazolam HCl 2 mg/2 ml Vial ONE (07:47)
[2019-01-14] MEDS ORDERED: Fentanyl 250 MCG/5 ML VIAL ONE (07:52)
[2019-01-14] MEDS: Enoxaparin Sodium 40 MG/0.4 ML SYRINGE SC SCH (09:27)
[2019-01-14] MEDS ORDERED: Ondansetron HCl/PF 4 MG/2 ML Vial IVP PRN (10:11)
[2019-01-14] MEDS ORDERED: Promethazine HCl 25 MG/ML VIAL IM PRN ×2 (10:11→11:18)
[2019-01-14] MEDS ORDERED: Promethazine HCl 25 MG/ML VIAL SLOW IVP PRN (10:11)
[2019-01-14] MEDS ORDERED: HYDROcodone/Acetaminophen 5/325 mg Tablet PO PRN ×2 (11:18)
[2019-01-14] MEDS ORDERED: Ondansetron PF 4 MG/2 ML Vial IVP PRN (11:18)
[2019-01-14] MEDS ORDERED: Sodium Chloride 0.9% 1,000 ML IV SCH (11:18)
[2019-01-14] MEDS ORDERED: Fentanyl 100 MCG/2 ML VIAL SLOW IVP PRN (11:18)
--- NOTE | 2019-01-14 11:26 | RAD ---
CHEST 1 VIEW: Date: 01/14/19 HISTORY: Empyema. Chest surgery. COMPARISON: 01/13/19. FINDINGS: Cardiac silhouette is magnified by projection. Pulmonary vasculature is slightly engorged and accentu ated by shallow inspiration. Mediastinum is midline. Two large caliber right thoracostomy tubes are i n place, directed towards the right base and right apex. Small amount of right pleural fluid remains. Tip of a right subclavian central venous catheter projects over the cavoatrial junction. IMPRESSION: 1. Right thoracostomy tubes in place. No residual pneumothorax. Small amount of right pleural fluid. 2. Right subclavian central venous catheter is in good radiographic position. POS: [facility]
[2019-01-14] MEDS: Ketorolac Tromethamine 30 MG/ML VIAL IVP SCH ×3 (12:22→23:28)
--- NOTE | 2019-01-14 14:04 | OP ---
DATE OF PROCEDURE: 01/14/2019 PREOPERATIVE DIAGNOSIS: Right empyema. POSTOPERATIVE DIAGNOSIS: Right empyema. PROCEDURES PERFORMED: 1. Right subclavian central line placement. 2. Right thoracoscopy with total pulmonary decortication. ANESTHESIA: General endotracheal-Dr. Kun Espinal. ESTIMATED BLOOD LOSS: Less than 100. DRAINS: 32-Ukrainian chest tubes x2. SPECIMENS: Fluid sent for culture. DESCRIPTION OF PROCEDURE: After consent was obtained, the patient was brought to the operating room and placed in supine position on the operating room table. Appropriate lines and monitors were placed, and general endotracheal anesthesia was induced. A right subclavian central line was placed for venous access. This was secured with silk sutures of the skin, flushed and flowed nicely. The patient was placed in a left lateral decubitus position. Joints were appropriately padded. SCDs were used. The right chest wall was prepped and draped in usual sterile fashion. Three separate skin incisions were made for port access. The suction was inserted and approximately 500 mL of fluid was evacuated. There was a significant amount of gelatinous material encasing both parietal and visceral pleura. This was debrided. Chest was copiously irrigated. Two 32-Ukrainian chest tubes were placed. The lung expanded nicely and filled the chest cavity. The third port site was closed in layers. 0.5% Marcaine was used to infiltrate around the two chest tubes and in the third port site. The patient tolerated the procedure well, was awakened, extubated, and transferred to the recovery room in stable condition. Job ID: [id number]
[2019-01-14] MEDS ORDERED: Lidocaine 1% PF 5 ML VIAL ONE (14:38)
[2019-01-14] MEDS ORDERED: Ondansetron PF 4 MG/2 ML Vial ONE (14:38)
[2019-01-14] MEDS ORDERED: Glycopyrrolate 0.2 MG/ML 5 ML SYRINGE ONE (14:38)
[2019-01-14] MEDS ORDERED: Rocuronium Bromide 10 MG/ML (10ML VIAL) ONE (14:38)
[2019-01-14] MEDS ORDERED: PROPOFOL 200 MG/20 ML VIAL ONE (14:38)
--- NOTE | 2019-01-14 17:42 | PRG ---
DATE OF SERVICE: 01/14/2019 SERVICE: Pulmonary Medicine. SUBJECTIVE: The patient is doing really well from respiratory standpoint. Breathing comfortably. He is status post decortication, postop day 0. His pain is actually under fairly decent control. He does not have any air leak. Otherwise, things are going quite well. OBJECTIVE: VITAL SIGNS: Afebrile, currently with a T-max of 99.8. Pulse 107, blood pressure 141/70, respirations 28, saturations 93% on 1 L nasal cannula. GENERAL: The patient is awake and alert, in no apparent distress lungs decent air entry. There is no prolonged expiratory phase or wheezing present. HEART: Normal rate regular. ABDOMEN: Soft, nontender, and nondistended. Bowel sounds positive. MUSCULOSKELETAL: No cyanosis or clubbing. No pitting in the bilateral lower extremities. NEUROLOGIC: Grossly nonfocal. LABORATORY DATA: WBC 9.9, hemoglobin 12.9, platelets 330,000. Basic metabolic profile is otherwise unremarkable except for potassium of 3.4. DIAGNOSTIC DATA: Chest x-ray demonstrates right-sided thoracostomy tube is in good position. There has been evacuation of the previous effusion. Low lung volumes accentuate interstitial markings. There is a small amount of fluid in the fissure, which is prominent. ASSESSMENT: 1. Acute hypoxic respiratory failure. 2. Community-acquired pneumonia. 3. Complicated parapneumonic pleural effusion versus empyema, status post thoracoscopy, postop day 0. 4. Fatty liver disease. 5. Severe sepsis, resolving. 6. Obstructive sleep apnea, suspected. DISCUSSION AND PLAN: The patient is doing fine from respiratory standpoint. Supportive measures will be continued. The thoracostomy tube will remain in place until he stops putting some fluid out. We will leave him on his current antibiotics. In a couple of days, we will likely be able to deescalate him over to p.o. augmented and complete a 14-day course of antibiotic from his procedure. Job ID: [id number]
[2019-01-15] MEDS: Piperacillin/Tazobactam 4.5 GM in Sodium Chloride 0.9% 100 ML IVPB SCH ×3 (05:32→18:02)
[2019-01-15] MEDS: Ketorolac Tromethamine 30 MG/ML VIAL IVP SCH ×3 (05:32→18:03)
--- NOTE | 2019-01-15 07:22 | PDOC.FM ---
- Subjective Subjective: Seen at bedside this morning resting comfortably s/p pulmonary decortication and R subclavian CVC placement POD 1. Minimal pain. No shortness of breath. No acute events over night. Patient states that he is breathing better today than yesterday - Objective MAR Reviewed: Yes Vital Signs & Weight: Vital Signs (12 hours) Temp Pulse Resp BP Pulse Ox 01/15/19 03:35 97.6 F 90 18 131/70 93 L 01/14/19 20:25 99.7 F H 118 H 18 137/67 93 L Weight Weight 106.594 kg I&O: 01/14/19 01/15/19 01/16/19 06:59 06:59 06:59 Intake Total 1570 1900 Output Total 1750 425 Balance -180 1475 Result Diagrams: 01/15/19 08:42 01/15/19 08:42 Phys Exam - Physical Examination Constitutional: NAD HEENT: moist MMs Neck: no JVD Improved breath sounds on R, some decreased air movment Cardiovascular: RRR, no significant murmur Gastrointestinal: soft, non-tender, no distention Musculoskeletal: no edema Neurological: moves all 4 limbs Psychiatric: A&O x 3 Deviation from normal: [address] on R midaxillary line. Non tender and clean Dx/Plan (1) Acute hypoxemic respiratory failure Code(s): J96.01 - ACUTE RESPIRATORY FAILURE WITH HYPOXIA Status: Acute (2) Costochondral chest pain Code(s): R07.1 - CHEST PAIN ON BREATHING Status: Acute (3) Dehydration Code(s): E86.0 - DEHYDRATION Status: Resolved (4) Fatty liver Code(s): K76.0 - FATTY (CHANGE OF) LIVER, NOT ELSEWHERE CLASSIFIED Status: Chronic (5) Sepsis due to pneumonia Code(s): J18.9 - PNEUMONIA, UNSPECIFIED ORGANISM; A41.9 - SEPSIS, UNSPECIFIED ORGANISM Status: Acute (6) Parapneumonic effusion Code(s): J18.9 - PNEUMONIA, UNSPECIFIED ORGANISM; J91.8 - PLEURAL EFFUSION IN OTHER CONDITIONS CLASSIFIED ELSEWHERE Status: Acute (7) Hypokalemia Code(s): E87.6 - HYPOKALEMIA Status: Acute - Plan Plan: 1. Acute Hypoxemic Respiratory Failure 2/2 Sepsis due to RLL Pneumonia, resolved - s/p decortication POD 1. Doing well and breathing easier today. - Continue Zosyn until chest tubes are pulled, then change to augmentin for 14 total days - tachycardia has improved 2. Costochondritis - prn oral NSAIDs 3. Moderate dehydration, resolved 4. Fatty Liver - incidental finding, senior counsel commercial out weight loss. Will need outpatient work up 5. Parapneumonic effusion, resolved -as above 6. Hypokalemia - labs pending at this time, will replace if needed Dispo: patient stable continue to monitor on tele, would expect 2-3 days of hospitalization pending surgical recovery Addendum - Attending - Attending Attestation Date/Time: 01/15/19 7717 I personally evaluated the patient and discussed the management with Dr. Lee I agree with the History, Examination, Assessment and Plan documented above with any addition or exceptions noted below- Patient without complaints. States that he is feeling better. Afebrile VSS. A/P: 1) Severe sepsis- resolving. 2) CAP with empyema- s/p decortication- POD#1- continue abx; cultures negative to date. Continue chest tube drainage.
[2019-01-15] MEDS: Enoxaparin Sodium 40 MG/0.4 ML SYRINGE SC SCH (08:30)
--- NOTE | 2019-01-15 08:33 | RAD ---
SINGLE VIEW CHEST: HISTORY: Status post thoracotomy. COMPARISON: 01/14/2019 FINDINGS: A single view of the chest shows a normal sized cardiomediastinal silhouette. Lines and tubes are un changed in position. Opacities are seen in the right thorax, which likely represent a moderate right pleural effusion with adjacent atelectasis. IMPRESSION: Stable examination. POS: [facility]
[2019-01-15 08:58] LABS: #Eosinphils 0.1 thou/uL (0.0-0.7); #Monocytes 1.4 thou/uL (0.11-0.59); #Neutrophils 8.7 thou/uL (1.40-6.50); %Basophils 0.2 % (0.0-1.0); %Eosinophils 1.3 % (0.0-10.0); %Lymphocytes 8.6 % (21.0-51.0); %Monocytes 12.4 % (0.0-10.0); %Neutrophils 77.6 % (42.0-75.0); Mean Corpuscular HGB CONC 32.6 g/dL (32.0-36.0); Mean Corpuscular Hemoglobin 29.3 pg (27.0-31.0); Platelet Count 354 thou/uL (130-400); RBC Distribution Width 12.2 % (11.5-14.5); White Blood Cell (WBC) Count 11.2 thou/uL (4.8-10.8)
[2019-01-15 09:09] LABS: Anion Gap 13 mmol/L (10-20); BUN (Urea Nitrogen) 13 mg/dL (8.9-20.6); Calc. Creatinine Clearance 221 mL/min (70-130); Calcium 8.9 mg/dL (7.8-10.44); Carbon Dioxide 24 mmol/L (22-29); Chloride 103 mmol/L (98-107); Estimated GFR-MDRD Greater than 90; Glucose 105 mg/dL (70-105); Potassium 3.9 mmol/L (3.5-5.1); Sodium 136 mmol/L (136-145)
[2019-01-15] MEDS ORDERED: Furosemide 20 MG/2 ML VIAL SLOW IVP SCH (10:30)
--- NOTE | 2019-01-15 17:26 | PRG ---
DATE OF SERVICE: 01/15/2019 SERVICE: Pulmonary Medicine. INTERVAL HISTORY: The patient is doing fine from respiratory standpoint. Denies any current chest pain, fevers, or chills. Otherwise, there has been no interval change to his condition. His pain is under very good control. He has had very little output from the chest tube. PHYSICAL EXAMINATION: VITAL SIGNS: Afebrile. Pulse 76, blood pressure 150/82, respirations 16, saturation 94% on room air. GENERAL: The patient is awake and alert, in no apparent distress. LUNGS: Excellent air entry. There is good air movement in bilateral lung francis. Some minimal rhonchi are present on the right. HEART: Normal rate, regular. ABDOMEN: Soft, nontender, nondistended. Bowel sounds are positive. MUSCULOSKELETAL: No cyanosis or clubbing. No pitting in the bilateral lower extremities. NEUROLOGIC: Grossly nonfocal. LABORATORY DATA: WBC 11.2, hemoglobin 12.0, and platelets 354,000. Basic metabolic profile is otherwise unremarkable. Bacterial culture, influenza A and B, urine culture, blood culture x1 is unremarkable. The other one likely has some contaminants in it. IMAGING DATA: Chest x-ray demonstrates stable thoracostomy tube in good expansion of the right lung. There has not been a significant interval change. ASSESSMENT: 1. Acute hypoxic respiratory failure, resolved. 2. Community-acquired pneumonia. 3. Complicated parapneumonic pleural effusion versus empyema, status post thoracoscopy, postop day 1. 4. Obstructive sleep apnea, suspected. 5. Fatty liver disease. 6. Severe sepsis, resolved. DISCUSSION AND PLAN: I will continue our current course of action. Once the chest tubes are removed, we can convert him over to p.o. antibiotics. I would prefer Augmentin. I will give him 2-week course from the date of his procedure. I will have him return to clinic in the outpatient setting with a repeat chest x-ray. At that point, I would likely set him up with an outpatient polysomnogram. Pulmonary Critical Care will continue to follow so long as he remains inhouse. Job ID: [id number]
[2019-01-16] MEDS: Ketorolac Tromethamine 30 MG/ML VIAL IVP SCH ×3 (00:23→11:19)
[2019-01-16] MEDS: Piperacillin/Tazobactam 4.5 GM in Sodium Chloride 0.9% 100 ML IVPB SCH ×3 (00:26→11:19)
[2019-01-16] MEDS ORDERED: Acetaminophen 325 MG TAB PO PRN (00:57)
--- NOTE | 2019-01-16 07:38 | PDOC.FM ---
- Subjective Subjective: Seen at bedside this morning. States that SOB is improving. Denies cough or chest pain. He has been ambulating minimally. No acute events over night. Chest tubes were taken off of suction yesterday. - Objective MAR Reviewed: Yes Vital Signs & Weight: Vital Signs (12 hours) Temp Pulse Resp BP Pulse Ox 01/16/19 04:40 97.1 F L 79 16 122/73 95 01/16/19 00:22 101 F H 98 16 129/75 93 L 01/15/19 21:06 95 01/15/19 20:59 99.6 F 92 16 133/82 95 Weight Weight 104.825 kg I&O: 01/15/19 01/16/19 01/17/19 06:59 06:59 06:59 Intake Total 2860 1717 Output Total 965 2120 Balance 1895 -403 Result Diagrams: 01/15/19 08:42 01/15/19 08:42 Phys Exam - Physical Examination Constitutional: NAD HEENT: moist MMs Neck: no JVD Minimal rales in R lung, decreased air movement. Similar to previous day L lung CTA Cardiovascular: RRR, no significant murmur Gastrointestinal: soft, non-tender Musculoskeletal: no edema Neurological: moves all 4 limbs Psychiatric: A&O x 3 Skin: no rash Dx/Plan (1) Acute hypoxemic respiratory failure Code(s): J96.01 - ACUTE RESPIRATORY FAILURE WITH HYPOXIA Status: Acute (2) Costochondral chest pain Code(s): R07.1 - CHEST PAIN ON BREATHING Status: Acute (3) Dehydration Code(s): E86.0 - DEHYDRATION Status: Resolved (4) Fatty liver Code(s): K76.0 - FATTY (CHANGE OF) LIVER, NOT ELSEWHERE CLASSIFIED Status: Chronic (5) Sepsis due to pneumonia Code(s): J18.9 - PNEUMONIA, UNSPECIFIED ORGANISM; A41.9 - SEPSIS, UNSPECIFIED ORGANISM Status: Acute (6) Parapneumonic effusion Code(s): J18.9 - PNEUMONIA, UNSPECIFIED ORGANISM; J91.8 - PLEURAL EFFUSION IN OTHER CONDITIONS CLASSIFIED ELSEWHERE Status: Acute (7) Hypokalemia Code(s): E87.6 - HYPOKALEMIA Status: Acute - Plan Plan: 1. Acute Hypoxemic Respiratory Failure 2/2 Sepsis due to RLL Pneumonia, resolved - s/p decortication POD 2. CXR shows improvement from yesterday - Continue Zosyn until chest tubes are pulled, then change to augmentin for 14 total days. Now day 2 2. Costochondritis, resolved 3. Moderate dehydration, resolved 4. Fatty Liver - incidental finding, counseling center director out weight loss. Will need outpatient work up 5. Parapneumonic effusion, resolved -as above 6. Hypokalemia, resolved 7. GENIE, suspected - follow up with pulm outpatient Dispo: patient stable continue to monitor on tele, would expect 2-3 days of hospitalization pending surgical recommendation. Will need outpatient follow up with pulm Addendum - Attending - Attending Attestation Date/Time: 01/16/19 1014 I personally evaluated the patient and discussed the management with Dr. Lee I agree with the History, Examination, Assessment and Plan documented above with any addition or exceptions noted below - Patient without complaints. Tm101 VSS. A/P: CAP with empyema - continue IV abx. Continue chest tubes as per pulmonary and CV surgery.
[2019-01-16] MEDS: Enoxaparin Sodium 40 MG/0.4 ML SYRINGE SC SCH (08:23)
--- NOTE | 2019-01-16 08:31 | RAD ---
CHEST ONE VIEW: HISTORY: Chest surgery. Followup. COMPARISON: 01/15/2019 FINDINGS: The cardiac silhouette is magnified by projection. The pulmonary vasculature remains engorged with w idespread reticulonodular interstitial prominence and bilateral perihilar infiltrate. The mediastinu m is midline. Right thoracostomy tubes and a central venous catheter are in place. Some residual ri ght pleural fluid and patchy infiltrate throughout the right lung are similar in appearance to the pr ior study. IMPRESSION: Stable radiographic appearance of the chest. POS: [facility]
[2019-01-16 15:48] VITALS: BP 143/92; TEMP 98
[2019-01-16] MEDS ORDERED: Amoxicillin/Potassium Clav 875 MG TAB PO SCH (21:00)
--- NOTE | 2019-01-17 09:37 | DIS ---
DATE OF ADMISSION: 01/10/2019 DATE OF DISCHARGE: 01/16/2019 ADMITTING ATTENDING: Leticia Sevilla MD. DISCHARGE ATTENDING: Leticia Sevilla MD. RESIDENT: Tony Lee DO. CONSULTS: 1. Dr. Walt Cruz of Pulmonology. 2. Dr. Russell Victor of Cardiovascular Surgery. PROCEDURES: 1. On 01/10, chest x-ray, finding, no evidence of acute cardiopulmonary process. 2. Chest CTA on 01/10, finding, mild right-sided pleural effusion with atelectatic changes, diffuse fatty changes in the visualized portion of the liver. No signs of pulmonary emboli. 3. Chest x-ray on 01/12, finding, moderate right pleural effusion with adjacent atelectasis versus infiltrate. 4. Chest CT on 01/13, finding, interval increase in right pleural fluid, somewhat loculated at the right upper mediastinum. No pleural gas. 5. Echo on 01/13, finding, EF of 50% to 55%, left atrium mild dilation, mild tricuspid regurg, otherwise normal. 6. On 01/14, right thoracoscopy with total pulmonary decortication and right subclavian central line placement. 7. Chest x-ray on 01/14, findings, right-sided thoracostomy tube is in place. No new pneumothorax. Small amount of right pleural fluid. 8. Chest x-ray on 01/15, normal size cardiomediastinal silhouette. Chest tubes in unchanged position. Opacities in the right thorax, which likely represent moderate right pleural effusion with adjacent atelectasis. 9. Chest x-ray on 01/16, stable radiographic appearance of the chest. ADMITTING DIAGNOSES: 1. Community-acquired pneumonia with parapneumonic effusion. 2. Sepsis secondary to pneumonia. 3. Acute hypoxemic respiratory failure. SECONDARY DIAGNOSES: 1. Costochondral chest pain. 2. Fatty liver. 3. Dehydration. 4. Hypokalemia. DISCHARGE MEDICATIONS: 1. Tylenol No. 3 one tablet p.o. q.6 p.r.n. pain. 2. Flexeril 10 mg p.o. t.i.d. p.r.n. muscle spasm. 3. Augmentin 875 mg p.o. q.12 x12 days. HOSPITAL COURSE: This is a 23-year-old male who was admitted for sepsis secondary to right-sided community-acquired pneumonia. The patient was started initially on broad-spectrum antibiotics of vanc and Zosyn. On 2nd day of admission, it was noted that it appeared to be a forming pleural effusion. On the 3rd day, the effusion did markedly worse and Pulmonary Critical Care was consulted. On this day, antibiotics were moved to Zosyn. The following day, repeat CT showed worsening of the pleural effusion and apparent loculation. It was determined at that time he was appropriate for a CV surgical consultation for decortication. This was set up for the following day. The procedure was completed without complication. For the subsequent 3 days, chest tubes remained in place with very minimal output while on suction. By postop day #3, chest tubes were removed and all signs and symptoms have resolved. The patient was moved over to p.o. Augmentin from Zosyn and discharged home with a 12 additional days of antibiotics for a total of 15-day course. The patient was given instructions to follow up with Dr. Cruz in 2 weeks following discharge. It was incidentally noted that the patient had fatty infiltrate of the liver. This is likely secondary to the patient's body habitus. It was recommended that the patient is to follow up with the PCP for workup and further monitoring. Additionally, due to the patient's habitus and severity of pneumonia, it was felt likely the patient has obstructive sleep apnea as a possible source of this type of infection related to aspiration. This will be addressed by Dr. Cruz in the outpatient setting upon 2-week followup. DISCHARGE INSTRUCTIONS: 1. Location: Home. 2. Diet: Regular. 3. Activity: Ad svetlana. 4. Followup: Follow up with PCP in 1 week. Follow up with Dr. Cruz within 2 weeks. Job ID: [id number]
--- NOTE | 2019-01-17 09:56 | PRG ---
DATE OF SERVICE: 01/16/2019 SERVICE: Pulmonary Medicine. INTERVAL HISTORY: The patient is doing fine from respiratory standpoint. He is breathing comfortably. Chest tube was removed this morning. He denies any fevers or chills. Otherwise, he is ready to go home today. PHYSICAL EXAMINATION: VITAL SIGNS: Afebrile, pulse 71, blood pressure 143/92, respirations 14, and saturation 95% on room air. GENERAL: The patient is awake and alert, in no apparent distress. LUNGS: Excellent air entry. There is no prolonged expiratory phase or wheezing present. HEART: Normal rate. Regular. ABDOMEN: Soft, nontender, and nondistended. Bowel sounds are positive. MUSCULOSKELETAL: No cyanosis or clubbing. No pitting in the bilateral lower extremities. NEUROLOGIC: Grossly nonfocal. IMAGING: Chest x-ray demonstrates stable radiographic appearance of the chest. At this point, the right thoracostomy tubes and central lines were in good position. ASSESSMENT: 1. Acute hypoxic respiratory failure, resolved. 2. Community-acquired pneumonia. 3. Complicated parapneumonic effusion versus empyema, status post thoracoscopy, postop day 2. 4. Obstructive sleep apnea, suspected. 5. Fatty liver disease. 6. Severe sepsis, resolved. DISCUSSION AND PLAN: The patient is doing absolutely wonderful from respiratory standpoint. The chest tubes have been removed. He needs a 10 additional days of Augmentin. I will see him in 2 weeks in the outpatient setting with a repeat chest x-ray. At that point, we will arrange for him to undergo a polysomnogram. Pulmonary/Critical Care will continue to follow along. In the outpatient setting, we will discuss weight and what the impact of fatty liver can be through time given his ARR. At his current age, he has plenty of time to prevent chronic liver disease. Job ID: [id number]
== END 2019-01-16 17:33 | disposition home or self-care (01) | DRG 853 ==
LOC: ERS 14:29 → 2NO 21:25
PROVIDERS: ADMIT Family Medicine; ATTEND Family Medicine
PROC: 0BNK4ZZ Release Right Lung, Percutaneous Endoscopic Approach (ICD-10-PCS; principal; 2019-01-14)
PROC: 05H533Z Insertion of Infusion Device into Right Subclavian Vein, Percutaneous Approach (ICD-10-PCS; 2019-01-14)
DX: A41.9 Sepsis, unspecified organism (principal); J18.9 Pneumonia, unspecified organism; J96.01 Acute respiratory failure with hypoxia; J86.9 Pyothorax without fistula; R65.20 Severe sepsis without septic shock; K76.0 Fatty (change of) liver, not elsewhere classified; E86.0 Dehydration; E87.6 Hypokalemia; G47.33 Obstructive sleep apnea (adult) (pediatric); E66.9 Obesity, unspecified; M94.0 Chondrocostal junction syndrome [Tietze]; Z68.34 Body mass index [BMI] 34.0-34.9, adult
CPT/HCPCS: 36415; 36416; 71045; 71046; 71250; 71275; 76705; 80048; 80053; 80306; 81003; 82330; 82550; 82803; 83605; 83690; 84145; 85025; 87040; 87070; 87086; 87149; 87205; 87389; 87804; 87899; 93005; 93306; 94640; 96361; 96365; 96375; J0153; J0670; J0696; J1650; J1885; J1940; J2001; J2250; J2405; J2543; J2704; J3010; J3370; J7050; J7620; Q0162; Q9966

== ENCOUNTER 2019-01-31 15:11 | Outpatient (CLI) | payer OTHER ==
--- NOTE | 2019-01-31 16:38 | RAD ---
PA AND LATERAL CHEST: HISTORY: Empyema of the right pleural space. COMPARISON: 01/16/2019 FINDINGS: There is continued elevation of the right hemidiaphragm. The right-sided chest tube has been removed in the interim. The heart size is normal. The left lung is clear. No large pleural effusions are seen. POS: H
== END 2019-01-31 15:12 | disposition home or self-care (01) ==
LOC: RAD 15:11
PROVIDERS: ATTEND Thoracic Surgery (Cardiothoracic Vascular Surgery)
DX: J86.9 Pyothorax without fistula (principal)
CPT/HCPCS: 71046

== ENCOUNTER 2021-09-25 16:49 | Emergency (ER) | payer BC, SELFPAY ==
[2021-09-25 17:30] LABS: #Eosinphils 0.3 thou/uL (0.0-0.7); #Lymphocytes 1.7 thou/uL (1.20-3.40); #Monocytes 0.4 thou/uL (0.11-0.59); #Neutrophils 4.6 thou/uL (1.40-6.50); %Basophils 0.4 % (0.0-1.0); %Eosinophils 4.2 % (0.0-10.0); %Lymphocytes 24.3 % (21.0-51.0); %Monocytes 5.9 % (0.0-10.0); %Neutrophils 65.2 % (42.0-75.0); Hemoglobin 15.9 g/dL (14.0-18.0); Mean Corpuscular HGB CONC 33.9 g/dL (32.0-36.0); Mean Corpuscular Hemoglobin 30.8 pg (27.0-31.0); Mean Corpuscular Volume 90.9 fL (78.0-98.0); Mean Platelet Volume 8.4 fL (7.4-10.4); Platelet Count 248 thou/uL (130-400); RBC Distribution Width 12.4 % (11.5-14.5); Red Blood Cell (RBC) Count 5.16 mill/uL (4.70-6.10)
[2021-09-25 18:01] LABS: ALT (SGPT) 82 U/L (8-55); AST (SGOT) 35 U/L (5-34); Albumin 4.6 g/dL (3.5-5.0); Alkaline Phosphatase 96 U/L (40-110); Anion Gap 13 mmol/L (10-20); BUN (Urea Nitrogen) 15 mg/dL (8.9-20.6); Bilirubin, Total 0.7 mg/dL (0.2-1.2); Calc. Creatinine Clearance 0 mL/min (70-130); Calcium 9.7 mg/dL (7.8-10.44); Carbon Dioxide 23 mmol/L (22-29); Chloride 106 mmol/L (98-107); Globulin 3.8 g/dL (2.4-3.5); Glucose 108 mg/dL (70-105); Potassium 3.9 mmol/L (3.5-5.1); Protein, Total 8.4 g/dL (6.0-8.3); Sodium 138 mmol/L (136-145)
[2021-09-25 19:23] LABS: Bilirubin Negative (Negative); Blood, Urine Negative (Negative); Clarity Clear (Clear); Glucose, Urine (Dipstick) Normal (Negative); Ketone, Urine Negative (Negative); Leukocyte Negative Leu/uL (Negative); Nitrite Negative (Negative); Protein, Urine (Dipstick) Negative (Neg-Trace); Specific Gravity, Urine 1.028 (1.002-1.036); Urobilinogen Normal mg/dL (Less than 2); pH, Urine 6.5 (5.0-9.0)
[2021-09-25] MEDS ORDERED: Ketorolac Tromethamine 30 MG/ML VIAL ONE (19:45)
== END 2021-09-25 22:15 | disposition home or self-care (01) ==
LOC: ERS 16:49
DX: K76.0 Fatty (change of) liver, not elsewhere classified (principal); R74.8 Abnormal levels of other serum enzymes; M54.9 Dorsalgia, unspecified
CPT/HCPCS: 36415; 71045; 76705; 80053; 81003; 85025; 94760; 96374; J1885